=== PATIENT | male | born 1960 | race Hispanic/Latino ===

== ENCOUNTER 2025-03-31 12:35 | Emergency (ER) | payer SELFPAY ==
[~2025-03-31] VITALS: Ht 177.8 cm; Wt 98.4 kg
[2025-03-31 14:00] VITALS: BP 151/79; PULSE 66; RESP 18; TEMP 97.9; O2SAT 97
--- NOTE | 2025-03-31 14:03 | HMCIMG ---
Exam Type: CT cervical spine without contrast Clinical Information: trauma, injry Comparison: None Technique: Spiral axial images were performed from the base of the skull down to the thoracic vertebral bodies. Both sagittal and coronal reconstructions were performed. CT Dose Index (CTDI): 12.85 mGy Dose Length Product (DLP): 282.6 total Findings: There is straightening of the spine consistent with spasm. There are no fractures. No facet hypertrophy. The prevertebral soft tissues are normal. IMPRESSION: Cervical spasm. No fractures. This study was performed using dose reduction techniques to include automated exposure control and/or adjustment of the mA and/or kV according to patient size.
--- NOTE | 2025-03-31 14:06 | HMCIMG ---
Exam Type: CT HEAD/BRAIN W/O CONTRAST Clinical Information: trauma, injry Comparison: None CT Dose Index (CTDI): 57.33 mGy Dose Length Product (DLP): 956.79 total mGy-cm Findings: There is low attenuation throughout the periventricular white matter locations, consistent with chronic small vessel ischemic changes. No acute intra- or extra-axial fluid collections are seen. There is no evidence of acute or chronic hemorrhage. There is no mass effect or shift of midline structures. There are no areas to suggest acute infarct. The skull windows show no significant abnormalities. IMPRESSION: 1. CHRONIC SMALL VESSEL ISCHEMIC CHANGES.
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
== END 2025-03-31 14:41 | disposition home or self-care (01) ==
LOC: EDH 12:35
DX: S09.90XA Unspecified injury of head, initial encounter (principal); I10 Essential (primary) hypertension; Z85.528 Personal history of other malignant neoplasm of kidney; Z90.49 Acquired absence of other specified parts of digestive tract; V89.2XXA Person injured in unspecified motor-vehicle accident, traffic, initial encounter; Y93.89 Activity, other specified; Y92.89 Other specified places as the place of occurrence of the external cause; Y99.8 Other external cause status
CPT/HCPCS: 70450; 72125; 99284